=== PATIENT | female | born 1985 | race Caucasian/White ===

== ENCOUNTER 2020-10-22 19:41 | Emergency (ER) | payer MEDICAID ==
[2020-10-22] MEDS ORDERED: EPINEPHrine 1 MG/ML SDV ONE (19:53)
[2020-10-22] MEDS ORDERED: EPINEPHrine 1 MG/ML SDV IM ONE ×2 (19:54→20:33)
[2020-10-22] MEDS ORDERED: Famotidine 20 MG/2 ML SDV IVPUSH ONE (19:54)
[2020-10-22] MEDS ORDERED: Sodium Chloride 0.9% 10 ML Syringe FLUSH PRN (19:54)
[2020-10-22] MEDS ORDERED: methylPREDNISolone Sodium Succinate 125 MG/2 ML SDV IVPUSH ONE (19:54)
--- NOTE | 2020-10-22 19:59 | EDM.PDOC ---
ED HPI GENERAL MEDICAL PROBLEM - General Chief Complaint: Allergic Reaction Stated Complaint: REACTION TO SOMETHING Time Seen by Provider: 10/22/20 19:53 Source of Information: Reports: Patient, RN Notes Reviewed - History of Present Illness INITIAL COMMENTS - FREE TEXT/NARRATIVE: 35 yr old female had sushi a short time ago, started breaking out in itchy rash mostly upper body, has some periorbital swelling of face. Her throat feels tight and she feels short of breath. Has never had any thing like this before. Pt did take benadryl 50 mg PO a short time ago [employer]. Generalized Pain Score (Numeric/FACES): 5 - Related Data Allergies Allergy/AdvReac Type Severity Reaction Status Date / Time nitrofurantoin Allergy Severe Hives Verified 10/22/20 19:47 [From Macrobid] Home Meds: Home Meds Zolpidem [Ambien] 10 mg PO BEDTIME 10/22/20 [History] Social & Family History - Tobacco Use Tobacco Use Status *Q: Never Tobacco User - Caffeine Use Caffeine Use: Reports: Soda - Recreational Drug Use Recreational Drug Use: No ED ROS ALLERGIC REACTION - Review of Systems Review Of Systems: See Below HEENT: Reports: Throat Swelling (throat feels tight), Other (R periorbital swelling). Denies: Rhinitis Respiratory: Reports: Shortness of Breath (mild) Cardiovascular: Denies: Chest Pain GI/Abdominal: Denies: Abdominal Pain, Nausea, Vomiting Musculoskeletal: Reports: No Symptoms Skin: Reports: Pruritis (generalized), Rash (generalized) Neurological: Reports: No Symptoms ED EXAM GENERAL NO PERIP PULSE - Physical Exam Exam: See Below General Appearance: Alert, Anxious, Mild Distress Eye Exam: Bilateral Eye: PERRL Throat/Mouth: Normal Inspection, No Airway Compromise, Other (no visible swelling inside the mouth) Neck: Supple Respiratory/Chest: No Respiratory Distress, No Accessory Muscle Use. No: Rales, Rhonchi, Wheezing Cardiovascular: Tachycardia GI/Abdominal: Non-Tender Extremities: Normal Inspection. No: Pedal Edema, Leg Pain, Redness Neurological: Alert, Oriented, No Motor/Sensory Deficits Skin Exam: Warm, Dry, Rash (fine nonraised erythematous rash all of upper body and to a lessor extent lower extrem. , no large or patch hives visible) Course - Vital Signs Last Recorded V/S: Last Vital Signs Temp 97.2 F 07/25/21 19:44 Pulse 82 10/22/20 21:18 Resp 16 10/22/20 21:18 BP 128/74 10/22/20 21:18 Pulse Ox 100 10/22/20 21:18 - Orders/Labs/Meds Orders: Active Orders 24 hr Category Date Time Status Peripheral IV Insertion Adult [OM.PC] Stat Oth 10/22/20 19:55 Ordered Meds: Medications Discontinued Medications Generic Name Dose Route Start Last Admin Trade Name Sneha PRN Reason Stop Dose Admin Epinephrine HCl 0.3 mg 10/22/20 19:54 10/22/20 19:58 Epinephrine 1 Mg/Ml Sdv IM 10/22/20 19:55 0.3 mg ONETIME ONE Administration Epinephrine HCl Confirm 10/22/20 19:53 10/22/20 19:58 Epinephrine 1 Mg/Ml Sdv Administered 10/22/20 19:54 Not Given Dose 1 mg .ROUTE .STK-MED ONE Epinephrine HCl 0.3 mg 10/22/20 20:33 10/22/20 20:42 Epinephrine 1 Mg/Ml Sdv IM 10/22/20 20:34 0.3 mg ONETIME ONE Administration Famotidine 20 mg 10/22/20 19:54 10/22/20 19:58 Famotidine 20 Mg/2 Ml Sdv IVPUSH 10/22/20 19:55 20 mg ONETIME ONE Administration Methylprednisolone Sodium Succinate 125 mg 10/22/20 19:54 10/22/20 19:59 Methylprednisolone Sodium Succinate 125 Mg/2 Ml Sdv IVPUSH 10/22/20 19:55 125 mg ONETIME ONE Administration Sodium Chloride 10 ml 10/22/20 19:54 10/22/20 19:58 Sodium Chloride 0.9% 10 Ml Syringe FLUSH 10 ml ASDIRECTED PRN Administration Keep Vein Open - Re-Assessments/Exams Free Text/Narrative Re-Assessment/Exam: 10/22/20 20:35 feeling less itchy after epi IM, has also had pepcid and solumedrol IV. She did take benadry 50 mg oral [employer]. Her throat still feels tight. Her throat has no visible swelling. She is breathing comfortably, sats 100 %. Will repeat epi 0.3 ml of the 1:1000 IM. 10/22/20 21:10. Feeling much better after the 2nd epi. Throat tightness is gone, eye lid swelling is better. No wheezing, breathing, resting comfortably, sats 100 %. Departure - Departure Time of Disposition: 21:15 Disposition: Home, Self-Care 01 Condition: Fair Clinical Impression: Allergic reaction Qualifiers: Encounter type: initial encounter Qualified Code(s): T78.40XA - Allergy, unspecified, initial encounter - Discharge Information Instructions: Allergies, Adult Referrals: PCP,Not In Area [Primary Care Provider] - Forms: ED Department Discharge Additional Instructions: Continue benadryl 25 or 50 mg q 6 to 8 hr until after sx resolve or for any reoccurrence. I do also recomend claritin 10 mg daily for the next 3 days. Return to ED as needed if symptoms worsening in any way. This was probably a shellfish reaction, consider yourself allergic to shellfish, best to avoid further shellfish ingestion as best you can. Sepsis Event Note (ED) - Evaluation Sepsis Screening Result: No Definite Risk - My Orders Last 24 Hours: My Active Orders 10/22/20 19:55 Peripheral IV Insertion Adult [OM.PC] Stat - Assessment/Plan Last 24 Hours: My Active Orders 10/22/20 19:55 Peripheral IV Insertion Adult [OM.PC] Stat
== END 2020-10-22 21:18 | disposition home or self-care (01) ==
LOC: JD.ED 19:41
DX: T78.1XXA Other adverse food reactions, not elsewhere classified, initial encounter (principal); Z88.1 Allergy status to other antibiotic agents
CPT/HCPCS: 96372; 96374; 96375; 99284; J0171; J2930; J3490; 99283